=== PATIENT | male | born 1945 | race Caucasian/White ===

== ENCOUNTER 2017-01-13 08:41 | Outpatient (CLI) ==
--- NOTE | 2017-01-13 09:12 | DI ---
EXAM: Two x-rays of the chest. Comparison: 04/21/2014. Reason for exam: Cough. FINDINGS: The lungs are hyperexpanded. Similar appearing blunting is seen and the costophrenic ang les. There is flattening of the hemidiaphragms. No pneumothorax, pleural effusion, or focal consol idations. The cardiac silhouette is not enlarged. Impression: No acute cardiopulmonary process in the setting of chronic obstructive pulmonary diseas e.
== END 2017-01-13 08:42 | disposition home or self-care (01) ==
LOC: RAD 08:41
PROVIDERS: ATTEND Family Medicine
DX: J40 Bronchitis, not specified as acute or chronic (principal)

== ENCOUNTER 2017-03-03 09:07 | Day surgery (SDC) ==
[2017-03-03] MEDS ORDERED: ALBUTEROL 0.083% NEB NEB STA (09:47)
[2017-03-03] MEDS ORDERED: LIDOCAINE 1% 20 ML MDV ONE (10:00)
[2017-03-03] MEDS ORDERED: LIDOCAINE 1% 20 ML MDV ID ONE (10:00)
[2017-03-03] MEDS ORDERED: DIPRIVAN 20 ML VIAL IVP ONE (10:27)
[2017-03-03] MEDS ORDERED: VERSED ONE (10:27)
[2017-03-03 12:26] VITALS: BP 97/55; TEMP 98
--- NOTE | 2017-03-03 14:43 | OP ---
PROCEDURE: COLONOSCOPY TO THE CECUM. ENDOSCOPIST: Carlos ROBERSON M.D. INDICATION: HISTORY OF ADENOMOMATOUS POLYPS/EXAM FIVE YEARS PRIOR TO THIS DATE. INSTRUMENT: Evento-[id number]. MEDICATION: PER ANESTHESIA. PROCEDURE: The patient was positioned for colonoscopy. The digital rectal exam was negative. The colonoscope was inserted through the anus and advanced under direct vision to the cecum. The cecum was identified using the ileocecal valve and the appendiceal orifice as landmarks. The scope was slowly withdrawn through an adequately prepped colon. The exam was normal throughout. The retroflex exam was normal. Withdrawal time 7 minutes and 12 seconds. PLAN: 1. Suggest repeat colonoscopy in 10 years; sooner if symptoms warrant. MTDD
== END 2017-03-03 11:45 | disposition home or self-care (01) ==
LOC: SURG 09:07
PROVIDERS: ATTEND Internal Medicine Gastroenterology
DX: Z09 Encounter for follow-up examination after completed treatment for conditions other than malignant neoplasm (principal); Z86.010 Personal history of colon polyps; K57.30 Diverticulosis of large intestine without perforation or abscess without bleeding
CPT/HCPCS: 94640